=== PATIENT | male | born 1960 | race Caucasian/White ===

== ENCOUNTER 2024-08-16 06:54 | Outpatient (CLI) | payer MEDICARE, SELFPAY ==
[2024-08-16] VITALS (9 sets, daily range): BP systolic 105–134; BP diastolic 50–73; PULSE 51–55; RESP 16–18; TEMP 36.6; O2SAT 95–98; BMI 28.0
--- NOTE | 2024-08-16 07:00 | CT_ITS ---
FINAL REPORT CLINICAL HISTORY: AST/ALT 397/935, normal bili/alk phos liver biopsy FINDINGS: CT GUIDED LIVER CORE BIOPSY. HISTORY: Abnormal liver function tests. ATTENDING PHYSICIAN: Dr. Garibay PHYSICIAN SCREEN EXAMINER: Barry Mcallister PA-C PROCEDURE: After informed consent was obtained and a timeout was performed, the patient was prepped and draped in usual sterile fashion over the right upper quadrant. Utilizing local anesthesia and sterile technique with a coaxial system, access to liver was obtained under direct CT guidance. A total of 2 separate 18-gauge core biopsies were obtained. Post biopsy films demonstrate no evidence of acute complication. The patient received moderate procedural sedation. The patient tolerated the procedure well and left the department in good condition. Localization images demonstrate a 2.1 cm cyst within the anterior right lobe of the liver. There are bilateral renal cysts measuring up to 5.7 cm. PROCEDURAL SEDATION: 2 mg of IV Versed and 50 mcg of Fentanyl were administered. Continuous vital sign monitoring was used. An RN was present during the sedation process. Overall sedation time was 15 minutes. IMPRESSION: Status post CT guided core biopsy of the liver without immediate complication. Films reviewed, interpreted and dictated by Dr. Garibay. Transcribed by Barry Mcallister PA-C. Reviewed, Interpreted and Dictated by Samuel Garibay MD Transcribed by MILTON King Authenticated and [facility]
[2024-08-16 07:50] LABS: INR 0.94 (0.9-1.1); Prothrombin Time 10.4 seconds (9.2-12.1)
[2024-08-16 18:44] LABS: POC Glucose,Bedside 143 (70-110)
== END 2024-08-16 11:21 | disposition home or self-care (01) ==
PROVIDERS: PCP Internal Medicine; Visit Provider Nurse Practitioner Family
DX: R74.8 Abnormal levels of other serum enzymes (principal); Z79.1 Long term (current) use of non-steroidal anti-inflammatories (NSAID)
CPT/HCPCS: 47000; 77012; 82962; 85610; 88304; 88307; J2250; J3010

== ENCOUNTER 2024-09-10 08:11 | Outpatient (CLI) | payer MEDICARE, SELFPAY ==
[2024-09-10 09:54] LABS: Albumin Level 4.5 g/dl (3.5-5.0); Chloride 103 mmol/L (98-107); Sodium 143 mmol/L (136-145)
[2024-09-10 09:57] LABS: Alanine Aminotransferase 24 U/L (12-78); Alkaline Phosphatase 66 U/L (38-126); Aspartate Amino Transferase 22 U/L (17-59); Bilirubin,Total 0.3 mg/dl (0.2-1.3); Blood Urea Nitrogen 18 mg/dl (9-20); Carbon Dioxide 31 mmol/L (22.0-30.0); Estimated Glomerular Filt Rate 67 ml/min (>60); GFR (African American) 81 ML/MIN (>60); Globulin 2.3 g/dL (1.3-3.2); Total Protein,Serum 6.8 g/dl (6.3-8.2)
[2024-09-10 09:58] LABS: Calcium 9.6 mg/dl (8.4-10.2); Glucose 97 mg/dl (74-100)
== END 2024-09-10 23:59 | disposition home or self-care (01) ==
LOC: LAB 08:13
PROVIDERS: PCP Internal Medicine; Visit Provider Nurse Practitioner Family
DX: R94.5 Abnormal results of liver function studies (principal)
CPT/HCPCS: 36415; 80053